=== PATIENT | female | born 1970 | race African-American/Black ===

== ENCOUNTER 2016-11-13 13:45 | Emergency (ER) | payer MEDICAID ==
[~2016-11-13] VITALS: Ht 177.8 cm; Wt 152.0 kg
[~2016-11-13 13:45] MED LIST: ALBUTEROL SULF8.5 GM INH; ASPIR 8181 MG ORAL; ASPIRIN81 MG ORAL; BACLOFEN10 MG ORAL; HYDROCHLOROTHIA25 MG ORAL; IBUPROFEN600 MG ORAL; IBUPROFEN800 MG ORAL; IMODIUM2 MG ORAL; LISINOPRIL-HCT1 EAC2 ORAL; LISINOPRIL10 MG ORAL; MEDROL4 MG ORAL; METFORMIN HCL1000 M1 ORAL; METFORMIN HCL500 M1 ORAL; NAPROXEN500 M2 ORAL; NORCO 5-325 TA1 EAC1 ORAL; NORCO 5-325 TA1 EACH ORAL; SILVADENE CREAM50 GM TOP; SIMVASTATIN5 MG ORAL; TRAMADOL HCL50 MG ORAL; VASOTEC5 MG ORAL; ZOFRAN4 MG ORAL
[2016-11-13 14:14] VITALS: BP 130/75
--- NOTE | 2016-11-13 14:28 | Emergency Room Report ---
History of Present Illness General Chief Complaint: Lower Back Pain or Injury Source: Medical Record Present Illness HPI 46 YO Female presents to the emergency department complaining of 10/10 in severity right sided low back pain that radiates down into the right posterior thigh x 2 days. onset after getting out of car. pt. has hx of lumbar back pain, and recently had Imaging, neurology, and orthopedic consults and was WNL .Denies trauma or fall. Denies numbness tingling or loss of sensation or gross motor movements of the extremities, incontinence of bowel or bladder. Denies CP , Palpitations, LOC, AMS, dizziness, Changes in Vision, Sensation, paresthesias , or a sudden severe headache. Allergies: Uncoded Allergies: iodine, contrast (Allergy, Unknown, 11/02/16) Patient History Past Medical History: see triage record Past Surgical History: none Pertinent Family History: none Last Menstrual Period: 10/27/16 Now: No Immunizations: UTD Reviewed Nursing Documentation: PMH: Agreed, PSxH: Agreed Nursing Documentation-PMH Hx Hypertension: Yes Hx Pacemaker: No Hx Asthma: Yes Hx COPD: No Hx Diabetes: Yes Hx Cancer: No Hx Gastrointestinal Problems: Yes Hx Dialysis: No Hx Neurological Problems: No Hx Cerebrovascular Accident: No Hx Seizures: No Review of Systems All Other Systems: negative except mentioned in HPI Physical Exam Vital Signs Date Time Temp Pulse Resp B/P (MAP) Pulse Ox O2 Delivery O2 Flow Rate FiO2 11/13/16 13:48 97.9 73 18 130/75 96 Room Air Sp02 EP Interpretation: reviewed, normal General Appearance: alert, GCS 15, non-toxic, mild distress, obese Head: normocephalic, atraumatic Eyes: bilateral eye normal inspection, bilateral eye PERRL ENT: hearing grossly normal, normal voice Neck: full range of motion, no bony tend Respiratory: lungs clear, normal breath sounds, no wheezing, speaking full sentences Cardiovascular #1: regular rate, rhythm Musculoskeletal: back normal, gait/station normal, normal range of motion, other - Pt also has area on the right posterior flank lumbar region with significant tenderness to very very superficial touch, no erythema, bruises, or rash noted. , tender - Right sided paraspinal lumbar TTP, no midline spinal ttp. Neurologic: alert, oriented x3, responsive, motor strength/tone normal, sensory intact, speech normal, other - no motor weakness Psychiatric: judgement/insight normal, memory normal, mood/affect normal Reflexes: 2+ knee (R), 2+ knee (L) Skin: normal color, no rash, warm/dry, well hydrated Medical Decision Making PA Attestation Dr. Muhammad is my supervising Physician whom patient management has been discussed with. Diagnostic Impression: Primary Impression: Low back pain Qualified Codes: M54.41 - Lumbago with sciatica, right side ER Course Patient presents to the emergency department complaining of 10/10 in severity right sided low back pain that radiates down into the right posterior thigh x 2 days. onset after getting out of car. pt. has hx of lumbar back pain, and recently had Imaging, neurology, and orthopedic consults and was WNL . Ddx considered: epidural abscess, fracture, sprain/strain, meningitis, spinal chord injury. Vital signs reviewed and are WNL during ED visit. Pt. is afebrile with no signs of infection No new symptoms, and denies recent trauma. No saddle anesthesia noted, Pt. denies incontinence Neurovascular is intact ROM is limited due to pain * Moderate Tenderness to palpation to the right paraspinal muscles of the lower back, no spinous process tenderness, no midline tenderness. -Pt. also has right lateral flank TTP to very superficial palpation, no rashes or lesions noted, suspicious for possible shingles prodrome. *Pt. describes pain today as moderate and radiates across the lower back down into the right thigh posteriorly ORDERS: none warranted at this time. INTERVENTIONS: -Soma PO - 20mg IM Toradol -Pt reports back pain to have greatly improved, pt. continues to have area of sensitivity on skin in the right flank area. d/w pt. possibility of being prodrome to shingles outbreak and that I will follow up with her later this week to see how she is doing. D/W Pt. that for further pain management is it recommended to consult PCP or a Chronic Pain management doctor. A provider who can safely prescribe controlled substances with close follow up. DISCHARGE: At this time pt. is stable for d/c to home. Will provide printed patient care instructions, and any necessary prescriptions. Care plan and follow up instructions have been discussed with the patient prior to discharge. Last Vital Signs Date Time Temp Pulse Resp B/P (MAP) Pulse Ox O2 Delivery O2 Flow Rate FiO2 11/13/16 14:14 97.9 18 130/75 96 Room Air 11/13/16 13:48 73 Disposition: HOME, SELF-CARE Condition: Stable Scripts Lidocaine (Lidocaine) 1 Each Adh..patch 700 MG TP Q12HR, #20 PATCH Prov: Evi Ying 11/13/16 Hydrocodone Bit/Acetaminophen 7.5-325* (NORCO 7.5-325*) 1 Each Tablet 1 TAB ORAL Q6H Y for For Pain, #7 TAB 0 Refills Prov: Evi Ying 11/13/16 Departure Forms: Return to Work Return to Work Date: Nov 16, 2016 Work Restrictions: No Heavy Lifting, No Prolonged Standing Other Restrictions: light duty x 1 week. Return to Full Activity: Nov 23, 2016 Patient Instructions: Back Pain, Adult Additional Instructions: Take medications as directed. Follow up with a Primary Care Provider in 3-5 days, even if your symptoms have resolved. --Please review list of primary care clinics, if you do not already have a primary care provider Return sooner to ED if new symptoms occur, or current symptoms become worse. Do not drink alcohol, drive, or operate heavy machinery while taking [place] as this may cause drowsiness. - Please note that this Emergency Department Report was dictated using [employer] nurse educator technology software, occasionally this can lead to erroneous entry secondary to interpretation by the dictation equipment. Evi Ying Nov 13, 2016 14:28
[2016-11-13] MEDS ORDERED: Ketorolac 60mg Inj IM ONE (14:30)
[2016-11-13] MEDS ORDERED: LIDOCAINE700 M1 TP (15:46)
[2016-11-13] MEDS ORDERED: NORCO 7.5-3251 EACH ORAL (15:46)
[2016-11-13 16:13] VITALS: BP_SYST 128; BP_SYST 130; BP_DIAS 68; BP_DIAS 75
== END 2016-11-13 16:27 | disposition home or self-care (01) ==
LOC: EMR 16:00
DX: M54.41 Lumbago with sciatica, right side (principal); E11.9 Type 2 diabetes mellitus without complications; J45.909 Unspecified asthma, uncomplicated; I10 Essential (primary) hypertension
CPT/HCPCS: 96372; 99284

== ENCOUNTER 2017-10-01 16:37 | Emergency (ER) | payer MEDICAID ==
[~2017-10-01] VITALS: Ht 177.8 cm; Wt 155.6 kg
[~2017-10-01 16:37] MED LIST changes: +LIDOCAINE700 M1 TP; +NORCO 7.5-3251 EACH ORAL
[2017-10-01] MEDS ORDERED: Morphine Sulfate 10mg/ml Inj IVP ONE (17:45)
[2017-10-01 17:56] LABS: APPEARANCE,URINE SLIGHTLY CLOUDY; BILIRUBIN, URINE NEGATIVE (NEGATIVE); COLOR,URINE AMBER; GLUCOSE, URINE (UA) NEGATIVE (NEGATIVE); KETONES,URINE NEGATIVE (NEGATIVE); LEUKOCYTE ESTERASE ,URINE 1+ (NEGATIVE); NITRITE,URINE NEGATIVE (NEGATIVE); PH,URINE 6 (4.5-8.0); PROTEIN,URINE 1+ (NEGATIVE); UROBILINOGEN,URINE 1 MG/DL (0.0-1.0)
[2017-10-01 19:15] LABS: BASOPHILS % (AUTO) 1.8 % (0.0-2.0); EOSINOPHILS % (AUTO) 2.9 % (0.0-3.0); HEMATOCRIT 32.8 % (37.0-47.0); HEMOGLOBIN 10.8 G/DL (12.0-16.0); LYMPHOCYTES % (AUTO) 39.1 % (20.0-45.0); MEAN CORPUSCULAR VOLUME 89 FL (80-99); MONOCYTES % (AUTO) 4.9 % (1.0-10.0); NEUTROPHILS % (AUTO) 51.3 % (45.0-75.0); PLATELET COUNT 305 K/UL (150-450); RED BLOOD COUNT 3.68 M/UL (4.20-5.40); RED CELL DISTRIBUTION WIDTH 12.7 % (11.6-14.8); WHITE BLOOD COUNT 7.1 K/UL (4.8-10.8)
[2017-10-01 19:28] LABS: ANION GAP 8 mmol/L (5-15); BLOOD UREA NITROGEN 12 mg/dL (7-18); CALCIUM 9.6 MG/DL (8.5-10.1); CARBON DIOXIDE 27 MMOL/L (21-32); CHLORIDE 106 MMOL/L (98-107); CREATININE 1.1 MG/DL (0.55-1.30); POTASSIUM 4.6 MMOL/L (3.5-5.1); SODIUM 141 MMOL/L (136-145)
[2017-10-01 19:32] LABS: ALANINE AMINOTRANSFERASE 24 U/L (12-78); ALBUMIN 3.4 G/DL (3.4-5.0); ALBUMIN/GLOBULIN RATIO 0.8 (1.0-2.7); ALKALINE PHOSPHATASE 66 U/L (46-116); ASPARTATE AMINO TRANSFERASE 21 U/L (15-37); BILIRUBIN,TOTAL 0.3 MG/DL (0.2-1.0)
[2017-10-01 20:22] VITALS: BP 158/83
[2017-10-01] MEDS ORDERED: DiphenhydrAMINE 50mg/ml Inj IVP ONE (20:45)
[2017-10-01] MEDS ORDERED: HYDROcodone/Acetamin 7.5/325 tab ORAL ONE (20:45)
[2017-10-01] MEDS ORDERED: cefTRIAXone 1 GM in NS 55 ML IVPB ONE (20:45)
--- NOTE | 2017-10-01 20:53 | Emergency Room Report ---
History of Present Illness General Chief Complaint: Pain Source: Patient, Medical Record Present Illness HPI 47-year-old female presents to the emergency department complaining of 10 out of 10 in severity right upper quadrant abdominal pain that radiates towards the back 4 days. Patient reports symptoms have been progressive. Patient reports history of abdominal pains since childhood however she reports her symptoms that she is presenting with today are not consistent with her normal abdominal pain. Pt. reports she had her gallbladder removed. Patient denies nausea, vomiting, fevers, chills, diarrhea or constipation. Pt. states that she does not recall whether or not food makes her symptoms worse. Denies recent travel, recent URI, urinary frequency, urgency or hematuria. pt. reports intermittent dull 4/10 in severity ZHU that has been coming and going this week. denies neck pain or stiffness. denies sudden onset of her ZHU's. Allergies: Coded Allergies: IODINE AND IODIDE CONTAINING PRODUC (Unverified Allergy, Unknown, 10/01/17) Uncoded Allergies: iodine, contrast (Allergy, Unknown, 11/02/16) Patient History Past Medical History: see triage record Past Surgical History: none Pertinent Family History: none Last Menstrual Period: 09/27/17 Reviewed Nursing Documentation: PMH: Agreed; PSxH: Agreed Nursing Documentation-PMH Past Medical History: No History, Except For Hx Hypertension: Yes Hx Pacemaker: No Hx Asthma: Yes Hx COPD: No Hx Diabetes: Yes Hx Cancer: No Hx Gastrointestinal Problems: Yes Hx Dialysis: No Hx Neurological Problems: No Hx Cerebrovascular Accident: No Hx Seizures: No Review of Systems All Other Systems: negative except mentioned in HPI Physical Exam Vital Signs Date Time Temp Pulse Resp B/P (MAP) Pulse Ox O2 Delivery O2 Flow Rate FiO2 10/01/17 16:54 98.4 77 18 158/83 95 Room Air 98.4 Sp02 EP Interpretation: reviewed, normal General Appearance: no apparent distress, alert, GCS 15, non-toxic Head: normocephalic, atraumatic Eyes: bilateral eye normal inspection, bilateral eye PERRL ENT: hearing grossly normal, normal voice Neck: full range of motion Respiratory: lungs clear, normal breath sounds, speaking full sentences Cardiovascular #1: regular rate, rhythm Gastrointestinal: normal bowel sounds, soft, tenderness - RUQ and Epigastric area. some CVA ttp. Rectal: deferred Genitourinary: normal inspection, CVA tenderness (R) Musculoskeletal: back normal, gait/station normal, normal range of motion, non- tender Neurologic: alert, oriented x3, responsive, motor strength/tone normal, sensory intact, speech normal, grossly normal Psychiatric: judgement/insight normal Skin: normal color, no rash, warm/dry, well hydrated Lymphatic: no adenopathy Medical Decision Making PA Attestation Dr. Ferguson is my supervising Physician whom patient management has been discussed with. Diagnostic Impression: Primary Impression: Urinary tract infection Qualified Codes: N30.01 - Acute cystitis with hematuria Additional Impression: Abdominal pain Qualified Codes: R10.11 - Right upper quadrant pain ER Course 47-year-old female presents to the emergency department complaining of 10 out of 10 in severity right upper quadrant abdominal pain that radiates towards the back 4 days. Patient reports symptoms have been progressive. Patient reports history of abdominal pains since childhood however she reports her symptoms that she is presenting with today are not consistent with her normal abdominal pain. Pt. reports she had her gallbladder removed. Patient denies nausea, vomiting, fevers, chills, diarrhea or constipation. Pt. states that she does not recall whether or not food makes her symptoms worse. Denies recent travel, recent URI, urinary frequency, urgency or hematuria. pt. reports intermittent dull 4/10 in severity ZHU that has been coming and going this week. denies neck pain or stiffness. denies sudden onset of her ZHU's. . Ddx considered but are not limited to Diverticulitis, acute appy, diarrhea,UC, PUD, GE, pancreatitis, gallstone, UTI, pyelonephritis or renal calculi just to name a few. Vital signs: are WNL, pt. is afebrile H&PE are most consistent with Abdominal pain, and possible UTI - work up for pancreatitis, renal calculi, or CBD blockage. ORDERS: -CBC, CMP, lipase: WNL all unremarkable - UA: Positive for UTI - Abd US ordered, however unable to be performed by US tech secondary to body habitus/weight. ED INTERVENTIONS: --- 1000NS, -Morphine IV -Benadryl - zofran 4mg IV -Pepcid IV -Viscous lidocaine and mylanta PO - Beryl PO d/w pt. conservative treatment, and to follow up with a primary care provider. pt given a list of primary care clinics for follow up. d/w pt. to return to the ED with worsening or new symptoms. DISCHARGE: At this time pt. is stable for d/c to home. Will provide printed patient care instructions, and any necessary prescriptions. Care plan and follow up instructions have been discussed with the patient prior to discharge. Labs Test 10/01/17 17:27 10/01/17 18:55 Urine Color Annamarie Urine Appearance Slightly cloudy Urine pH 6 (4.5-8.0) Urine Specific [place] 1.020 (1.005-1.035) Urine Protein 1+ (NEGATIVE) Urine Glucose (UA) Negative (NEGATIVE) Urine Ketones Negative (NEGATIVE) Urine Occult Blood 4+ (NEGATIVE) Urine Nitrite Negative (NEGATIVE) Urine Bilirubin Negative (NEGATIVE) Urine Ictotest Negative Urine Urobilinogen 1 MG/DL (0.0-1.0) Urine Leukocyte Esterase 1+ (NEGATIVE) Urine RBC 15-20 /HPF (0 - 2) Urine WBC 5-10 /HPF (0 - 2) Urine Squamous Epithelial Cells Many /LPF (NONE/OCC) Urine Bacteria Moderate /HPF (NONE) White Blood Count 7.1 K/UL (4.8-10.8) Red Blood Count 3.68 M/UL (4.20-5.40) Hemoglobin 10.8 G/DL (12.0-16.0) Hematocrit 32.8 % (37.0-47.0) Mean Corpuscular Volume 89 FL (80-99) Mean Corpuscular Hemoglobin 29.4 PG (27.0-31.0) Mean Corpuscular Hemoglobin Concent 33.0 G/DL (32.0-36.0) Red Cell Distribution Width 12.7 % (11.6-14.8) Platelet Count 305 K/UL (150-450) Mean Platelet Volume 5.6 FL (6.5-10.1) Neutrophils (%) (Auto) 51.3 % (45.0-75.0) Lymphocytes (%) (Auto) 39.1 % (20.0-45.0) Monocytes (%) (Auto) 4.9 % (1.0-10.0) Eosinophils (%) (Auto) 2.9 % (0.0-3.0) Basophils (%) (Auto) 1.8 % (0.0-2.0) Sodium Level 141 MMOL/L (136-145) Potassium Level 4.6 MMOL/L (3.5-5.1) Chloride Level 106 MMOL/L (98-107) Carbon Dioxide Level 27 MMOL/L (21-32) Anion Gap 8 mmol/L (5-15) Blood Urea Nitrogen 12 mg/dL (7-18) Creatinine 1.1 MG/DL (0.55-1.30) Estimat Glomerular Filtration Rate > 60 mL/min (>60) Glucose Level 115 MG/DL (74-106) Calcium Level 9.6 MG/DL (8.5-10.1) Total Bilirubin 0.3 MG/DL (0.2-1.0) Aspartate Amino Transf (AST/SGOT) 21 U/L (15-37) Alanine Aminotransferase (ALT/SGPT) 24 U/L (12-78) Alkaline Phosphatase 66 U/L (46-116) Total Protein 7.9 G/DL (6.4-8.2) Albumin 3.4 G/DL (3.4-5.0) Globulin 4.5 g/dL Albumin/Globulin Ratio 0.8 (1.0-2.7) Lipase 302 U/L (73-393) Last Vital Signs Date Time Temp Pulse Resp B/P (MAP) Pulse Ox O2 Delivery O2 Flow Rate FiO2 10/01/17 20:22 98.0 18 158/83 95 Room Air 98.0 10/01/17 16:54 77 Disposition: HOME, SELF-CARE Condition: Stable Scripts Ranitidine Hcl* (ZANTAC*) 150 Mg Tablet 150 MG ORAL TWICE A DAY for 7 Days, #14 TAB Prov: Evi Ying 10/01/17 Cefixime (SUPRAX) 400 Mg Capsule 400 MG PO BID for 10 Days, #20 CAP Prov: Evi Ying 10/01/17 Referrals: [facility],REFERRING (PCP) Patient Instructions: Pyelonephritis, Adult, [id number], Urinary Tract Infection Additional Instructions: Take medications as directed. Follow up with a Primary Care Provider in 3-5 days, even if your symptoms have resolved. --Please review list of primary care clinics, if you do not already have a primary care provider Return sooner to ED if new symptoms occur, or current symptoms become worse. Do not drink alcohol, drive, or operate heavy machinery while taking Tylenol # 3 as this may cause drowsiness. - Please note that this Emergency Department Report was dictated using [employer] worker technology software, occasionally this can lead to erroneous entry secondary to interpretation by the dictation equipment. Evi Ying Oct 01, 2017 20:53
[2017-10-01] MEDS ORDERED: SUPRAX400 M1 PO (20:58)
[2017-10-01] MEDS ORDERED: ZANTAC150 MG ORAL (20:58)
[2017-10-01] MEDS ORDERED: Lidocaine 2% Visc 15ml soln ORAL ONE (21:00)
[2017-10-01] MEDS ORDERED: Mylanta II UD 30ml ORAL ONE (21:00)
[2017-10-01 21:30] VITALS: BP 153/89
== END 2017-10-01 21:40 | disposition home or self-care (01) ==
LOC: EMR 17:30
DX: N39.0 Urinary tract infection, site not specified (principal); R10.11 Right upper quadrant pain; I10 Essential (primary) hypertension; J45.909 Unspecified asthma, uncomplicated; E11.9 Type 2 diabetes mellitus without complications
CPT/HCPCS: 36415; 80053; 81003; 83690; 85025; 87086; 96361; 96365; 96375; 99284; J0696; J1200; J2270

== ENCOUNTER 2017-12-11 22:39 | Emergency (ER) | payer OTHER, MEDICAID ==
[~2017-12-11] VITALS: Ht 177.8 cm; Wt 145.1 kg
[~2017-12-11 22:39] MED LIST changes: +SUPRAX400 M1 PO; +ZANTAC150 MG ORAL
[2017-12-11] MEDS ORDERED: Ketorolac 60mg Inj IM ONE (23:00)
[2017-12-11] MEDS ORDERED: HYDROcodone/Acetamin 10/325 tab ORAL ONE (23:00)
--- NOTE | 2017-12-11 23:02 | Emergency Room Report ---
History of Present Illness General Chief Complaint: Multiple Trauma/Fall Source: Patient Present Illness HPI Patient presents with complaints of pain to her right side Patient reports that she had been helping patient onto a ramp at work coming backwards there was some question that the ramp wasn't not brought down fully patient essentially had a fall to her right side Patient has some amnesia to episode cannot recall if she specifically hit her head however she does have some pain to the top parietal region on the right side Pain also to the right shoulder right hip area Denies any chest pain or shortness of breath denies any vomiting patient was seen by a clinic and provided pain medicine however reports that is not helping Allergies: Coded Allergies: IODINE AND IODIDE CONTAINING PRODUC (Unverified Allergy, Unknown, 10/01/17) Uncoded Allergies: iodine, contrast (Allergy, Unknown, 11/02/16) Patient History Past Medical History: see triage record Pertinent Family History: none Last Menstrual Period: 10/30/17 Now: No Reviewed Nursing Documentation: PMH: Agreed; PSxH: Agreed Nursing Documentation-PMH Hx Hypertension: Yes Hx Pacemaker: No Hx Asthma: Yes Hx COPD: No Hx Diabetes: Yes Hx Cancer: No Hx Gastrointestinal Problems: Yes Hx Dialysis: No Hx Neurological Problems: No Hx Cerebrovascular Accident: No Hx Seizures: No Review of Systems All Other Systems: negative except mentioned in HPI Physical Exam Vital Signs Date Time Temp Pulse Resp B/P (MAP) Pulse Ox O2 Delivery O2 Flow Rate FiO2 12/11/17 22:42 98.1 73 21 137/78 98 Room Air 98.1 Sp02 EP Interpretation: reviewed, normal General Appearance: no apparent distress Head: normocephalic, atraumatic Eyes: bilateral eye PERRL, bilateral eye EOMI ENT: hearing grossly normal, normal pharynx Neck: other - No midline tenderness, patient had some mild discomfort to the right paracervical Area C2-C3, also mid trapezius Respiratory: lungs clear, normal breath sounds Cardiovascular #1: regular rate, rhythm, no edema Gastrointestinal: non tender, soft Musculoskeletal: other - Patient is uncomfortable on palpation of the right shoulder, right hip area patient is ambulatory however Neurologic: alert, oriented x3, responsive Skin: normal color, no rash Lymphatic: no adenopathy Medical Decision Making Diagnostic Impression: Primary Impression: Contusion ER Course Given the patient's history exam and presentation x-ray imaging is obtained of the shoulder and the hip area I did not feel patient met criteria for head imaging X-rays were negative patient's provided with pain medication feels improved at this time is stable for close outpatient follow-up Other X-Ray Diagnostic Results Other X-Ray Diagnostic Results #1: X-Ray ordered: Right shoulder # of Views/Limited Vs Complete: 4 View Indication: Pain EP Interpretation: Yes Interpretation: no dislocation, no soft tissue swelling, no fractures Impression: No acute disease Electronically Signed by: Abimael Berg DO Other X-Ray Diagnostic Results #2: X-Ray ordered: Pelvic # of Views/Limited Vs Complete: 3 View Indication: Pain EP Interpretation: Yes Interpretation: no dislocation, no soft tissue swelling, no fractures Impression: No acute disease Electronically Signed by: Abimael Berg DO Last Vital Signs Date Time Temp Pulse Resp B/P (MAP) Pulse Ox O2 Delivery O2 Flow Rate FiO2 12/11/17 22:42 98.1 73 21 137/78 98 Room Air 98.1 Status: improved Disposition: HOME, SELF-CARE Condition: Improved Scripts Methocarbamol* (ROBAXIN-750*) 750 Mg Tablet 750 MG PO TID, #21 TAB 0 Refills Prov: Abimael Berg DO 12/12/17 Hydrocodone Bit/Acetaminophen 5-325* (NORCO 5-325*) 1 Each Tablet 1 TAB ORAL Q6H PRN for For Pain, #10 TAB 0 Refills Prov: Abimael Berg DO 12/12/17 Ibuprofen* (MOTRIN*) 600 Mg Tablet 600 MG ORAL Q8H PRN for For Pain, #20 TAB 0 Refills Prov: Abimael Berg DO 12/12/17 Additional Instructions: Patient is provided with the discharge instructions notified to follow up with primary doctor in the next 2-3 days otherwise return to the er with any worsening symptoms. Please note that this report is being documented using [employer] technology. This can lead to erroneous entry secondary to incorrect interpretation by the dictating instrument. Abimael Berg DO Dec 11, 2017 23:02
[2017-12-11 23:07] VITALS: BP 137/78
[2017-12-12] MEDS ORDERED: ROBAXIN-750750 MG PO (00:17)
[2017-12-12] MEDS ORDERED: IBUPROFEN600 MG ORAL (00:17)
[2017-12-12] MEDS ORDERED: NORCO 5-325 TA1 EACH ORAL (00:17)
[2017-12-12 01:02] VITALS: BP 128/73
[2017-12-12 01:05] VITALS: BP 128/73
--- NOTE | 2017-12-12 10:31 | Diagnostic Imaging Report ---
Indication: Pain Findings: 3 views of the right shoulder were obtained. No acute fractures, malalignment, erosions or periostitis are identified. There is a small bony projection extending superiorly from the upper part of the acromion likely a small peritendinitis spur or osteochondroma. Soft tissues are unremarkable. Impression: Negative for acute injury
--- NOTE | 2017-12-12 10:32 | Diagnostic Imaging Report ---
Indication: pain Pelvic trauma and pain Findings: Single AP view of the pelvis was performed. No acute fracture is identified. Bilateral hips and sacroiliac joints appear symmetric.There is no malalignment. Soft tissues are unremarkable. Impression: No acute findings.
== END 2017-12-12 01:06 | disposition home or self-care (01) ==
LOC: EMR 23:01
DX: S40.011A Contusion of right shoulder, initial encounter (principal); S70.01XA Contusion of right hip, initial encounter; W19.XXXA Unspecified fall, initial encounter; Y92.480 Sidewalk as the place of occurrence of the external cause; R51 Headache; I10 Essential (primary) hypertension; E11.9 Type 2 diabetes mellitus without complications; J45.909 Unspecified asthma, uncomplicated; Z91.041 Radiographic dye allergy status
CPT/HCPCS: 72170; 81025; 96372; 99283

== ENCOUNTER 2018-08-07 16:04 | Emergency (ER) | payer MEDICAID, OTHER ==
[~2018-08-07] VITALS: Ht 177.8 cm; Wt 154.2 kg
[~2018-08-07 16:04] MED LIST changes: +ROBAXIN-750750 MG PO
[2018-08-07 16:09] VITALS: BP 143/83
[2018-08-07] MEDS ORDERED: Albuterol/Ipratropium 3ml neb HHN ONE (16:45)
--- NOTE | 2018-08-07 17:14 | Emergency Room Report ---
History of Present Illness General Chief Complaint: Upper Respiratory Illness Present Illness HPI 48-year-old female with history of prediabetes controlled with medication and asthma controlled with albuterol inhaler and within a site here complaining of 5 days of asthma exacerbation. Reports she has been using her inhaler more than usual also coughing phlegm. She reports she started having sore throat 5 days ago, with nasal congestion. Again some tzwk-uca-[id number] medication with minimal relief. Denies fever, chills, chest pain, shortness of breath. Denies nausea, vomiting, abdominal pain, and all other associated symptoms. Allergies: Coded Allergies: IODINE AND IODIDE CONTAINING PRODUC (Unverified Allergy, Unknown, 10/01/17) Uncoded Allergies: iodine, contrast (Allergy, Unknown, 11/02/16) Patient History Past Medical History: see triage record Past Surgical History: unable to obtain Pertinent Family History: none Last Menstrual Period: 08/06/18 Now: No Immunizations: UTD Reviewed Nursing Documentation: PMH: Agreed; PSxH: Agreed Nursing Documentation-PMH Past Medical History: No History, Except For Hx Hypertension: Yes Hx Pacemaker: No Hx Asthma: Yes Hx COPD: No Hx Diabetes: Yes Hx Cancer: No Hx Gastrointestinal Problems: Yes Hx Dialysis: No Hx Neurological Problems: No Hx Cerebrovascular Accident: No Hx Seizures: No Review of Systems All Other Systems: negative except mentioned in HPI Physical Exam Vital Signs Date Time Temp Pulse Resp B/P (MAP) Pulse Ox O2 Delivery O2 Flow Rate FiO2 08/07/18 16:09 98.1 69 16 143/83 (103) 97 Room Air 08/07/18 16:47 21 Sp02 EP Interpretation: reviewed, normal General Appearance: normal inspection, well appearing, no apparent distress Head: normocephalic, atraumatic Eyes: bilateral eye normal inspection, bilateral eye PERRL ENT: no angioedema, TMs + canals normal, pharyngeal erythema, tonsillar exudate Neck: normal inspection, full range of motion, supple Respiratory: no rhonchi, no retraction, wheezing - Diffuse wheezing noted Cardiovascular #1: normal inspection, regular rate, rhythm, no murmur, normal capillary refill Gastrointestinal: normal inspection Genitourinary: no CVA tenderness Musculoskeletal: normal inspection Neurologic: normal inspection, alert Psychiatric: normal inspection, judgement/insight normal Skin: normal inspection, normal color, no rash, warm/dry Lymphatic: normal inspection, no adenopathy Medical Decision Making PA Attestation All my diagnosis and treatment plans were reviewed ad discussed with my supervising physician Dr. Varghese Diagnostic Impression: Primary Impression: Pharyngitis Additional Impression: Asthma exacerbation ER Course 48-year-old female with history of prediabetes controlled with medication and asthma controlled with albuterol inhaler and within a site here complaining of 5 days of asthma exacerbation. Reports she has been using her inhaler more than usual also coughing phlegm. She reports she started having sore throat 5 days ago, with nasal congestion. Again some seti-zqg-snwieec medication with minimal relief. Denies fever, chills, chest pain, shortness of breath. Denies nausea, vomiting, abdominal pain, and all other associated symptoms. Ddx considered but are not limited to: strep pharyngitis, URI, tonsilitis, peritonsillar absacess, influneza Vital signs: are WNL, pt. is afebrile H&PE are most consistent with: pharyngitis and asthma exacerbation ORDERS: janna tripp guifinicen DM, ED INTERVENTIONS: albuterol/ipratropium neb DISCHARGE: At this time pt. is stable for d/c to home. Will provide printed patient care instructions, and any necessary prescriptions. Care plan and follow up instructions have been discussed with the patient prior to discharge. Last Vital Signs Date Time Temp Pulse Resp B/P (MAP) Pulse Ox O2 Delivery O2 Flow Rate FiO2 08/07/18 16:47 81 20 98 Room Air 21 08/07/18 16:09 98.1 143/83 Disposition: HOME, SELF-CARE Condition: Stable Scripts Guaifenesin/Dextromethorphan (Guaifenesin Dm Syrup) 5 Ml Syrup 1 TSP PO DAILY, #120 ML Prov: Jodie De La Rosa 08/07/18 Benzonatate* (TESSALON PERLE*) 100 Mg Capsule 100 MG ORAL THREE TIMES A DAY, #20 PERLE Prov: Jodie De La Rosa 08/07/18 Amoxicillin/Potassium Clav 875-125* (AUGMENTIN 875-125 TABLET*) 1 Each Tablet 1 TAB ORAL TWICE A DAY for 10 Days, #20 TAB Prov: Jodie De La Rosa 08/07/18 Patient Instructions: Asthma, Adult, [id number], Pharyngitis, Opbt-ix-Rosi Additional Instructions: Take prescribed medication as directed, use your inhalers accordingly no oral steroids can be given due to your diabetes status. take Mucinex DM only at night follow-up with your primary care provider for better management of asthma Jodei De La Rosa August 07, 2018 17:14
[2018-08-07] MEDS ORDERED: AUGMENTIN 875-1 EAC1 ORAL (17:17)
[2018-08-07] MEDS ORDERED: ORGANIDIN100 MG/5 M PO (17:17)
[2018-08-07] MEDS ORDERED: TESSALON PERLE100 MG ORAL (17:17)
[2018-08-07 17:23] VITALS: BP 137/80
== END 2018-08-07 17:23 | disposition home or self-care (01) ==
LOC: EMR 16:51
DX: J02.9 Acute pharyngitis, unspecified (principal); J45.901 Unspecified asthma with (acute) exacerbation; I10 Essential (primary) hypertension; E11.9 Type 2 diabetes mellitus without complications
CPT/HCPCS: 94640; 94664; 99284; J7620

== ENCOUNTER 2018-10-27 13:47 | Emergency (ER) | payer MEDICAID, OTHER ==
[~2018-10-27] VITALS: Ht 175.3 cm; Wt 160.6 kg
[~2018-10-27 13:47] MED LIST changes: +AUGMENTIN 875-1 EAC1 ORAL; +ORGANIDIN100 MG/5 M PO; +TESSALON PERLE100 MG ORAL
[2018-10-27 14:05] VITALS: BP 156/87
--- NOTE | 2018-10-27 14:05 | NUR ---
ED Nurse Note: pt walked in due to lower back pain started 1 year ago, pt stated she fell on a wheelchair 1 year ago and hit her head, pt not in acute distress. aox4, ermd on bedside. will continue to monitor.
[2018-10-27] MEDS ORDERED: Ketorolac 30mg Inj IM ONE (14:15)
--- NOTE | 2018-10-27 14:18 | Emergency Room Report ---
History of Present Illness General Chief Complaint: Lower Back Pain or Injury Source: Patient Present Illness HPI Disclaimer: Please note that this report is being documented using DRAGON technology. This can lead to erroneous entry secondary to incorrect interpretation by the dictating instrument. HPI: 48-year-old female with a history of obesity, asthma, prediabetes, GERD presents for evaluation of back pain. Right-sided, present for 1 year after a slip and fall, worse over the past month, denies lower extremity paresthesias, saddle anesthesia, weakness, urinary retention, fecal incontinence. No new injury or trauma. Came in today because she was bring her daughter in for evaluation of a separate medical issue and just checked him to have herself checked out to her. She does note some pain shooting from the right lower back down the leg intermittently. Has not seen a spinal specialist. She has been using muscle relaxers, narcotic pain medication, anti-inflammatory such as ibuprofen and lidocaine patches with some control of symptoms. States that there is been worsening over the past month. Otherwise she is in her usual state of health and denies headaches, vision changes, chest pain, shortness of breath, vomiting, fever, abdominal pain. PMH: Obesity, asthma, GERD, prediabetes PSH: Denies Allergies: Iodine Social Hx: Denies alcohol, tobacco or drug abuse Allergies: Coded Allergies: IODINE AND IODIDE CONTAINING PRODUC (Unverified Allergy, Unknown, 10/01/17) Uncoded Allergies: iodine, contrast (Allergy, Unknown, 11/02/16) Nursing Documentation-PMH Hx Hypertension: Yes Hx Pacemaker: No Hx Asthma: Yes Hx COPD: No Hx Diabetes: Yes Hx Cancer: No Hx Gastrointestinal Problems: Yes Hx Dialysis: No Hx Neurological Problems: No Hx Cerebrovascular Accident: No Hx Seizures: No Review of Systems All Other Systems: negative except mentioned in HPI Physical Exam Vital Signs Date Time Temp Pulse Resp B/P (MAP) Pulse Ox O2 Delivery O2 Flow Rate FiO2 10/27/18 13:59 98.1 69 19 156/87 (110) 96 Room Air General: Awake and alert, no acute distress HEENT: NC/AT. EOMI. Resp: Normal work of breathing. Abdomen: Abdomen is soft, nondistended, obese. Nontender Skin: Intact. No abrasions, laceration or rash over the exposed skin MSK: Normal tone and bulk. Moving all extremities. No obvious deformity. Neuro: Awake and alert. Mentating appropriately. Sensation is intact over the dermatomes of the lower extremities bilaterally. Back/Spine: No midline tenderness in the cervical, thoracic or lumbosacral spine. Significant right-sided paraspinal tenderness and tenderness over the piriformis wrapping around over the upper gluteus region Medical Decision Making Diagnostic Impression: Primary Impression: Radiculopathy of lumbosacral region ER Course 48-year-old female presents for evaluation of 1 year worsening right-sided back pain. Patient is neurologically intact and has no red flag symptoms of cauda equina or spinal epidural abscess. Overall, she is well-appearing and ambulating without difficulty in the emergency department. She is already using narcotic pain medication, NSAIDs, lidocaine patches and muscle relaxants. She has symptoms of radiculopathy and likely sciatica intermittently though currently is denying these symptoms. I instructed her to follow-up with her PMD to be referred to a spinal specialist. She should continue using her medications as instructed. We discussed reasons to return to the emergency department. She understands and agrees with this treatment plan. Last Vital Signs Date Time Temp Pulse Resp B/P (MAP) Pulse Ox O2 Delivery O2 Flow Rate FiO2 10/27/18 13:59 98.1 69 19 156/87 (110) 96 Room Air Disposition: HOME, SELF-CARE Condition: Stable Scripts Ibuprofen* (MOTRIN*) 600 Mg Tablet 600 MG ORAL Q6H PRN for For Pain, #30 TAB 0 Refills Prov: Bret Hager MD 10/27/18 Bret Hager MD Oct 27, 2018 14:17
[2018-10-27] MEDS ORDERED: IBUPROFEN600 MG ORAL (14:22)
--- NOTE | 2018-10-27 14:23 | NUR ---
ED Nurse Note: pt medicated as ordered, pt able to tolerate im meds. will continue to monitor.
--- NOTE | 2018-10-27 14:29 | NUR ---
ER DISCHARGE NOTE: Patient is cleared to be discharged per ERMD, pt is aox4, on room air, with stable vital signs. pt was given dc and prescription instructions, pt was able to verbalize understanding, pt id band removed without complications. pt is able to ambulate with steady gait. pt took all belongings.
== END 2018-10-27 14:30 | disposition home or self-care (01) ==
LOC: EMR 14:30
DX: M54.17 Radiculopathy, lumbosacral region (principal); I10 Essential (primary) hypertension; E11.9 Type 2 diabetes mellitus without complications; J45.909 Unspecified asthma, uncomplicated; Z91.041 Radiographic dye allergy status; K21.9 Gastro-esophageal reflux disease without esophagitis; R73.03 Prediabetes; E66.9 Obesity, unspecified; Z68.43 Body mass index [BMI] 50.0-59.9, adult
CPT/HCPCS: 96372; 99283; J1885